=== PATIENT | male | born 1990 | race African-American/Black ===

== ENCOUNTER 2018-09-20 06:58 | Day surgery (SDC) | payer OTHER ==
[2018-09-20] MEDS ORDERED: LACTATED RINGERS 1,000 ML IV ONE (07:06)
--- NOTE | 2018-09-20 07:46 | ANESTHESIA ---
Pre-Anesthesia VS, & Labs - Diagnosis right inguinal hernia, umbilical hernia - Procedure right hernia repair, umbilical hernia repair Vital Signs: Temp Pulse Resp BP Pulse Ox 36.2 C L 61 16 118/85 H 99 09/20/18 07:07 09/20/18 07:07 09/20/18 07:07 09/20/18 07:07 09/20/18 07:07 Height 5 ft 10 in Weight (kg) 69.5 kg - NPO >8 hours Home Medications and Allergies Home Medications: Ambulatory Orders Multivitamin [Multiple Vitamins] 1 each PO DAILY 09/14/18 Multivitamin [Multiple Vitamins] 1 each PO DAILY 09/14/18 Allergies/Adverse Reactions: Allergies Allergy/AdvReac Type Severity Reaction Status Date / Time No Known Drug Allergies Allergy Verified 09/14/18 13:36 Anes History & Medical History - Anesthetic History Anesthesia Complications: reports: No previous complications Family history of Anesthesia Complications: Denies Family history of Malignant Hyperthermia: Denies - Medical History Cardiovascular: reports: None Pulmonary: reports: None Gastrointestinal: reports: None Urinary: reports: None Musculoskeletal: reports: None Endocrine/Autoimmune: reports: None Skin: reports: None Smoking Status: Never smoker Exam General: Alert Dental: WNL Mouth Opening: Greater than 4 Fingerbreadths Neck Mobility: Normal Mallampati classification: I Respiratory: Lungs clear Cardiovascular: Regular rate Plan Anesthesia Type: General Consent for Procedure(s) Verified and Reviewed: Yes Code Status: Attempt Resuscitation ASA classification: 1-Healthy patient Is this case an emergency?: Yes
[2018-09-20] MEDS ORDERED: BUPIVACAINE 0.5%-EPI 1:200000 PF 30 ML VIAL ONE (08:29)
[2018-09-20] MEDS ORDERED: LIDOCAINE-MPF 1% 30 ML VIAL ONE (08:29)
[2018-09-20] MEDS ORDERED: ceFAZolin 1 GM VIAL ONE (08:30)
[2018-09-20] MEDS ORDERED: LIDOCAINE-MPF 2% 5 ML VIAL IM ONE (08:30)
[2018-09-20] MEDS ORDERED: fentaNYL 100 MCG/2 ML VIAL IVP ONE (08:30)
[2018-09-20] MEDS ORDERED: ACETAMINOPHEN 1,000 MG/100 ML 100 ML IV ONE (08:30)
[2018-09-20] MEDS ORDERED: MIDAZOLAM 2 MG/2 ML VIAL IVP ONE (08:30)
[2018-09-20] MEDS ORDERED: ONDANSETRON 4 MG/2 ML VIAL IVP ONE (08:30)
[2018-09-20] MEDS ORDERED: DEXAMETHASONE 4 MG/ML VIAL IVP ONE (08:30)
[2018-09-20] MEDS ORDERED: KETOROLAC 30 MG/ML VIAL IVP ONE (08:30)
[2018-09-20] MEDS ORDERED: ceFAZolin 1 GM VIAL IV ONE (08:30)
--- NOTE | 2018-09-20 10:32 | OPERATIVE REPORT ---
Operative Report - General Procedure Date: 09/20/18 Planned Procedure: Umbilical hernia repair and right inguinal hernia repair Pre-Op Diagnosis: Umbilical hernia and right inguinal hernia-incarcerated Procedure Performed: Umbilical hernia repair and right inguinal hernia repair Post Op Diagnosis: Same - Procedure Note Primary Surgeon: [place] Anesthesia Provider: Bill Anesthesia Technique: General ET tube, Local, Regional block IV Fluids (mL): 800 Estimated Blood Loss (mL): 10 Findings: Small umbilical hernia Moderate sized indirect right inguinal hernia - Other Other Information/Narrative: After obtaining informed consent, the patient was brought to the operating room and placed in the supine position on the operating table. Following successful induction of general endotracheal anesthesia, appropriate padding of all bony prominences, and placement of appropriate monitors, the abdomen and groin were prepped and draped in the standard surgical fashion. A timeout was held per CTOAP protocol. We began by addressing the umbilical hernia.The area around the umbilicus itself was infiltrated with a mixture of local anesthetics to create a field block. An incision was then created directly through the umbilicus and carried down to the hernia sac.The sac was then freed from the overlying skin with sharp dissection.The edges of the defect were then carefully defined again with sharp dissection.Only approximately 1 cm in greatest dimension. The contents consisted of preperitoneal fat.This was placed back in the abdominal cavity. The defect was closed with a single #1 PDS suture. It was checked for hemostasis. The skin incision was then closed in layers with Vicryl and Monocryl suture. We now turned our attention to the right inguinal hernia.We began the procedure by creating an ileal inguinal nerve block. A mixture of local anesthetics was infiltrated just medial to the anterior superior iliac spine on the right. We continued by infiltrating the area of the planned incision with local anesthetics to create a field block.The incision was then created and carried down through the skin and subcutaneous tissue through Jazz's fascia to reveal the external oblique aponeurosis. The aponeurosis was opened in the direction of its fibers. The spermatic cord, hernia sac, and ilioinguinal nerve were all carefully identified and carefully preserved.The hernia sac was then gently d issected free from the spermatic cord using primarily sharp dissection. It was liberated down to its base and then placed back into the abdominal cavity gently. We elected to repair the defect with a large Prolene hernia system mesh implant. This was soaked in Ancef solution and then deployed into the defect and flattened in the preperitoneal space.The overlying leaflet of the implant was then straightened. It was sewn to the pubic tubercle medially and the shelving edge of the inguinal ligament laterally.Superiorly it was tacked to the transversalis fascia.A kenyon was created medially and this overlying layer for easy passage of the spermatic cord and ilioinguinal nerve. This opening was loosely closed as to avoid impingement on either of these structures. The wound was then checked for hemostasis and closed in layers with Vicryl and Monocryl suture. It was dressed with Dermabond.All sponge, needle, and instrument counts were correct at the conclusion of the case. The patient was allowed to awaken from anesthesia without difficulty and taken to the postanesthesia care unit in good condition.
[2018-09-20] MEDS ORDERED: HYDROmorphone 0.5 MG/0.5 ML SYRINGE IVP PRN (10:44)
[2018-09-20] MEDS ORDERED: ONDANSETRON 4 MG/2 ML VIAL IVP PRN (10:44)
[2018-09-20] MEDS ORDERED: oxyCODONE 5 MG TABLET PO PRN (10:44)
[2018-09-20 11:03] VITALS: BP 118/83
[2018-09-20] MEDS ORDERED: oxyCODONE 5 MG TABLET ONE (11:40)
== END 2018-09-20 06:59 | disposition home or self-care (01) ==
LOC: SDS 06:58
PROVIDERS: ATTEND Surgery
PROC: 0WQF0ZZ Repair Abdominal Wall, Open Approach (ICD-10-PCS; principal; 2018-09-20 08:30)
PROC: 0YU50JZ Supplement Right Inguinal Region with Synthetic Substitute, Open Approach (ICD-10-PCS; 2018-09-20 08:30)
DX: K40.30 Unilateral inguinal hernia, with obstruction, without gangrene, not specified as recurrent (principal); K42.9 Umbilical hernia without obstruction or gangrene
CPT/HCPCS: 49507; 49585; A9270; J0131; J7120

== ENCOUNTER 2018-12-26 12:41 | Day surgery (SDC) | payer OTHER ==
[2018-12-26] MEDS ORDERED: LACTATED RINGERS 1,000 ML IV ONE (12:59)
--- NOTE | 2018-12-26 13:22 | ANESTHESIA ---
Pre-Anesthesia VS, & Labs - Diagnosis L inguinal hernia - Procedure L inguinal hernia repair Height 5 ft 10 in - NPO >8 hours Home Medications and Allergies Home Medications: Ambulatory Orders No Known Home Medications 12/08/18 No Known Home Medications 12/08/18 Allergies/Adverse Reactions: Allergies Allergy/AdvReac Type Severity Reaction Status Date / Time No Known Drug Allergies Allergy Verified 09/14/18 13:36 Anes History & Medical History - Medical History Cardiovascular: reports: None Pulmonary: reports: None Gastrointestinal: reports: None Urinary: reports: None Musculoskeletal: reports: None Endocrine/Autoimmune: reports: None Skin: reports: None Smoking Status: Never smoker - Surgical History General: Other Exam General: Alert, Oriented x3, Cooperative Dental: WNL Mouth Openin Fingerbreadth Neck Mobility: Normal Respiratory: Lungs clear, Normal breath sounds Plan Anesthesia Type: General Consent for Procedure(s) Verified and Reviewed: Yes Code Status: Attempt Resuscitation ASA classification: 1-Healthy patient Is this case an emergency?: No
--- NOTE | 2018-12-26 13:24 | ANESTHESIA ---
Pre-Anesthesia VS, & Labs - Diagnosis left inguinal hernia - Procedure left inguinal hernia repair Vital Signs: Temp Pulse Resp BP Pulse Ox 36.7 C 52 L 16 115/84 H 99 12/26/18 12:59 12/26/18 12:59 12/26/18 12:59 12/26/18 12:59 12/26/18 12:59 Height 5 ft 10 in Weight (kg) 68.2 kg - NPO >8 hours Home Medications and Allergies Home Medications: Ambulatory Orders No Known Home Medications 12/08/18 No Known Home Medications 12/08/18 Allergies/Adverse Reactions: Allergies Allergy/AdvReac Type Severity Reaction Status Date / Time No Known Drug Allergies Allergy Verified 09/14/18 13:36 Anes History & Medical History - Anesthetic History Anesthesia Complications: reports: No previous complications - Medical History Cardiovascular: reports: None Pulmonary: reports: None Gastrointestinal: reports: None, Other (inguinal hernia) Urinary: reports: None Musculoskeletal: reports: None Endocrine/Autoimmune: reports: None Skin: reports: None Smoking Status: Never smoker - Surgical History General: Other Exam General: Alert Dental: WNL Mouth Opening: Greater than 4 Fingerbreadths Mallampati classification: II Thyromental Distance: greater than 6 cm Respiratory: Lungs clear Cardiovascular: Regular rate, Normal S1, Normal S2 Plan Anesthesia Type: General Consent for Procedure(s) Verified and Reviewed: Yes Code Status: Attempt Resuscitation ASA classification: 1-Healthy patient Is this case an emergency?: Yes
[2018-12-26] MEDS ORDERED: ceFAZolin 1 GM VIAL ONE (13:31)
[2018-12-26] MEDS ORDERED: LIDOCAINE 1% 50 ML MDV ONE (13:31)
[2018-12-26] MEDS ORDERED: BUPIVACAINE 0.5%-EPI 1:200000 PF 10 ML VIAL ONE (13:32)
[2018-12-26] MEDS ORDERED: fentaNYL 100 MCG/2 ML VIAL IVP ONE (13:41)
[2018-12-26] MEDS ORDERED: MIDAZOLAM 2 MG/2 ML VIAL IVP ONE (13:41)
[2018-12-26] MEDS ORDERED: LIDOCAINE-MPF 2% 5 ML VIAL IM ONE (13:41)
[2018-12-26] MEDS ORDERED: DEXAMETHASONE 4 MG/ML VIAL IVP ONE (13:41)
[2018-12-26] MEDS ORDERED: PROPOFOL 200 MG/20 ML VIAL IVP ONE (13:41)
[2018-12-26] MEDS ORDERED: ONDANSETRON 4 MG/2 ML VIAL IVP ONE (13:41)
[2018-12-26] MEDS ORDERED: KETOROLAC 30 MG/ML VIAL IVP ONE (13:41)
[2018-12-26] MEDS ORDERED: BUPIVACAINE 0.5%-EPI 1:200000 PF 30 ML VIAL SUBQ ONE ×2 (14:01)
[2018-12-26] MEDS ORDERED: ceFAZolin 1 GM VIAL IR ONE (14:01)
[2018-12-26] MEDS ORDERED: LIDOCAINE 1% 50 ML MDV SUBQ ONE ×2 (14:01)
[2018-12-26] MEDS ORDERED: ACETAMINOPHEN 325 MG TABLET PO PRN (14:52)
[2018-12-26] MEDS ORDERED: oxyCODONE 5 MG TABLET PO PRN (14:52)
[2018-12-26] MEDS ORDERED: ONDANSETRON 4 MG/2 ML VIAL IVP PRN (14:52)
[2018-12-26] MEDS ORDERED: IBUPROFEN 600 MG TABLET PO PRN (14:52)
[2018-12-26 16:32] VITALS: BP 116/81
--- NOTE | 2018-12-26 17:14 | OPERATIVE REPORT ---
DATE OF SERVICE: 12/26/2018 Physician: Kole Mireles MD PREOPERATIVE DIAGNOSIS: Symptomatic left inguinal hernia. POSTOPERATIVE DIAGNOSIS: Symptomatic left inguinal hernia, indirect. PROCEDURE PERFORMED: Open repair of symptomatic left inguinal hernia with polypropylene mesh. ANESTHESIA: General, LMA plus local by Klaudia Plummer CRNA. SURGEON: Kole Mireles MD ESTIMATED BLOOD LOSS: 5 mL COMPLICATIONS: None. FINDINGS: A small indirect left inguinal hernia was identified. There was no evidence of direct or femoral hernia. A Bard mesh was used for the reconstruction. INDICATIONS: Patient is a 28-year-old male with recent onset of a painful left groin bulge. Examina tion revealed a reducible left inguinal hernia. He was advised to undergo elective repair. TECHNIQUE: After informed consent, the patient was taken to the operating room where he was placed u nder general anesthesia by Hood Plummer CRNA. Preoperative preparation included application of sequ ential calf compression boots and administration of 2 grams cefazolin intravenously within an hour of the incision. His left groin had been clipped in the ASU and was prepared with ChloraPrep solution and draped in the usual sterile fashion; 30 mL of a 50:50 combination of 0.5% bupivacaine with epinep hrine and 1% lidocaine plain was used for local infiltration anesthesia. A transverse incision was m lenin beginning in the skin lines of the left groin just above the pubic tubercle and extending lateral ly 5 cm. Hemostasis achieved with electrocautery and 2-0 Vicryl ties. Incision carried down through the subcutaneous tissues until the external oblique aponeurosis was identified and was incised along the lines of its fibers in such a manner as to open the external ring and expose the internal ring. The ilioinguinal nerve was seen to be markedly focally thickened, inflamed and scarred as it passed over the hernia sac, and was mobilized and divided to avoid entrapment and neuralgia. The spermatic cord was mobilized and encircled with a Leonid drain. The cord was carefully dissected, isolating t he hernia sac and dissecting it free from surrounding cord structures to the level of the internal ri ng. The hernia sac was entered and a finger inserted in the peritoneal cavity. A search for direct and femoral hernias made and none was identified. The hernia sac was twisted and doubly highly ligat ed with 2-0 silk and 2-0 Vicryl suture ligatures. Excess hernia sac was amputated and discarded. Af ter hemostasis was assured, the wound was irrigated with antibiotic solution containing 1 gram of cef azolin per liter, following which the Bard mesh expanded polypropylene, medium weight, precut, slotte d inguinal patch was brought onto the field, soaked in the antibiotic solution. It was placed over t he inguinal floor where it was secured in place circumferentially with continuous 3-0 Prolene suture, securing it to the shelving edge of Poupart's ligament inferiorly, to the internal oblique aponeuros is superolaterally and to the lateral border rectus sheath medially. Care was taken to avoid excessi ve tightening of the patch around the cord at the level of the internal ring. After hemostasis was a ssured, the wound was again irrigated with antibiotic solution, following which wound closure was acc omplished in layers using continuous 2-0 Vicryl, reapproximated the external oblique aponeurosis over lying the cord, followed by 3-0 Vicryl for Jazz's fascia and 4-0 Monocryl subcuticular skin closure , followed by Dermabond. Anesthesia was terminated and patient was transferred to the recovery room in satisfactory condition. Sponge and needle counts were correct x2. No drains were used. cc: Miguel Ryan MD TD: 12/26/2018 15:05
== END 2018-12-26 12:42 | disposition home or self-care (01) ==
LOC: SDS 12:41
PROVIDERS: ATTEND Surgery
PROC: 0YU60JZ Supplement Left Inguinal Region with Synthetic Substitute, Open Approach (ICD-10-PCS; principal; 2018-12-26 14:00)
DX: K40.90 Unilateral inguinal hernia, without obstruction or gangrene, not specified as recurrent (principal); G58.8 Other specified mononeuropathies
CPT/HCPCS: 49505; C1781; J7120

== ENCOUNTER 2023-07-02 14:15 | Outpatient (CLI) | payer OTHER | END 2023-07-02 14:30 | disposition home or self-care (01) | LOC: LAB.N 14:15 | PROVIDERS: ATTEND Physician Assistant Medical | DX: J02.9 Acute pharyngitis, unspecified (principal) | CPT/HCPCS: 87070 ==